=== PATIENT | female | born 1985 | race African-American/Black ===

== ENCOUNTER 2016-04-07 15:09 | Emergency (ER) | payer MEDICAID ==
[~2016-04-07] VITALS: Ht 167.6 cm; Wt 76.2 kg
[~2016-04-07 15:09] MED LIST: CLARITIN-D 121 EAC1 ORAL; CORTISPORIN EAR10 ML RIGHT EAR; IBUPROFEN600 MG ORAL; KEFLEX500 MG ORAL; NKM; NORCO 5-325 TA1 EACH ORAL
[2016-04-07 15:38] VITALS: BP 122/62
--- NOTE | 2016-04-07 15:51 | Emergency Room Report ---
History of Present Illness General Chief Complaint: Skin Rash/Abscess Source: Patient Present Illness HPI 30-year-old female presents to emergency Department complaining of an itchy rash x2 days. Patient denies new lotions or detergents. Pt denies taking medications for her symptoms. Patient denies contact her personal similar symptoms. Patient denies recent illness denies nausea, vomiting, fevers, chills or abdominal pain. She states is the first time she's had symptoms like this. patient states rash is primarily on the hands and worked its way up the arms, upper chest, and some on the face. denies wheezing, swelling of the lips or tongue, difficulty breathing or recent travel. Denies CP, Palpitations, LOC, AMS, dizziness, Changes in Vision, Sensation, paresthesias, or a sudden severe headache. Allergies: Coded Allergies: NO KNOWN ALLERGIES (Unverified Allergy, Unknown, 03/17/15) Patient History Past Medical History: see triage record Past Surgical History: none Pertinent Family History: none Last Menstrual Period: 04/05/16 Now: No Immunizations: UTD Reviewed Nursing Documentation: PMH: Agreed, PSxH: Agreed Nursing Documentation-PMH Past Medical History: No History, Except For Hx Cardiac Problems: No - arthritis Review of Systems All Other Systems: negative except mentioned in HPI Physical Exam Vital Signs Date Time Temp Pulse Resp B/P Pulse Ox O2 Delivery O2 Flow Rate FiO2 04/07/16 15:33 97.9 99 14 114/70 100 Room Air Sp02 EP Interpretation: reviewed, normal General Appearance: no apparent distress, alert, GCS 15, non-toxic Head: normocephalic, atraumatic Eyes: bilateral eye PERRL, bilateral eye normal inspection ENT: hearing grossly normal, normal pharynx, no angioedema, normal voice Neck: full range of motion, supple/symm/no masses Respiratory: chest non-tender, lungs clear, normal breath sounds, speaking full sentences Cardiovascular #1: regular rate, rhythm, no edema Gastrointestinal: non tender, soft, no guarding, no rebound Rectal: deferred Genitourinary: normal inspection, no CVA tenderness Musculoskeletal: back normal, gait/station normal, normal range of motion, non- tender, no calf tenderness Neurologic: alert, oriented x3, responsive, motor strength/tone normal, sensory intact, speech normal Psychiatric: judgement/insight normal, memory normal, mood/affect normal, no suicidal/homicidal ideation Skin: normal color, warm/dry, well hydrated, rash - hyperpigmented swollen/ raised confluent rash noted on bilateral dorsum of hands, forearms, UE, anterior chest and scantly on the face. no lips, tongue, or oral involvement. no erythem, no crusting noted. Lymphatic: no adenopathy Medical Decision Making PA Attestation Dr. patel is my supervising Physician whom patient management has been discussed with. Diagnostic Impression: Primary Impression: Rash and other nonspecific skin eruption ER Course Pt. presents to the ED c/o rash on the bilateral UE, anterior chest, and cheeks x 2 weeks. Ddx considered but are not limited to cellulitis, scabies, shingles, varicella, dermatitis, urticaria, eczema, tinea, dyshydrosis Vital signs: are WNL, pt. is afebrile H&PE are most consistent with dermatitis most likely contact, however dorsum of the bilateral hands has eczema appearance. ORDERS: none required at this time, the diagnosis is clinical ED INTERVENTIONS: -50mg Benadryl PO -D/W pt. that she will need dermatology follow up for definitive diagnosis. will treat symptomatically and conservatively. DISCHARGE: At this time pt. is stable for d/c to home. Will provide printed patient care instructions, and any necessary prescriptions. Care plan and follow up instructions have been discussed with the patient prior to discharge. Last Vital Signs Date Time Temp Pulse Resp B/P Pulse Ox O2 Delivery O2 Flow Rate FiO2 04/07/16 15:38 98.4 81 16 122/62 100 Room Air Disposition: HOME, SELF-CARE Condition: Stable Scripts Hydrocortisone 2% Cream (ANTI-ITCH 2% CREAM) Y Cr 1 APPLIC TP TID, #56 GM Prov: Yolanda To 04/07/16 Triamcinolone Acet (Triamcinolone Acetonide) 15 Gm Cream..g. 15 APPLIC TP BID, #15 GM Prov: Yolanda To 04/07/16 Hydroxyzine Hcl (HYDROXYZINE HCL) 25 Mg Tablet 25 MG PO TID, #90 TAB Take one or two tablets up to three times daily for itching. Prov: Yolanda To 04/07/16 Referrals: NOT CHOSEN [facility]/MD,REFERRING (PCP) Patient Instructions: Rash Additional Instructions: Take medications as directed. Follow up with [facility] in 3-5 days Return sooner to ED if new symptoms occur, or current symptoms become worse. Do not drink alcohol, drive, or operate heavy machinery while taking Hydroxyzine as this may cause drowsiness. Yolanda To Apr 07, 2016 15:51
[2016-04-07] MEDS ORDERED: KENALOG 0.5% CR15 GM TP (15:56)
[2016-04-07] MEDS ORDERED: ANTI-ITCH56 GM TP (15:56)
[2016-04-07] MEDS ORDERED: HYDROXYZINE HCL25 M1 PO (15:56)
[2016-04-07 16:16] VITALS: BP 118/60
== END 2016-04-07 16:16 | disposition home or self-care (01) ==
LOC: EMR 15:40
DX: R21 Rash and other nonspecific skin eruption (principal)
CPT/HCPCS: 99282